=== PATIENT | female | born 1980 | race Caucasian/White ===

== ENCOUNTER 2021-10-15 08:06 | Emergency (ER) | payer BC, OTHER ==
[2021-10-15 08:21] VITALS: BP 122/74; PULSE 77; TEMP 98; BMI 32.9
== END 2021-10-15 08:38 | disposition home or self-care (01) ==
LOC: JER 08:06
DX: R09.82 Postnasal drip (principal); Z20.822 Contact with and (suspected) exposure to COVID-19
CPT/HCPCS: 99283-25; C9803; U0003; U0005

== ENCOUNTER 2021-10-25 08:33 | Emergency (ER) | payer BC, OTHER ==
[2021-10-25 08:36] VITALS: BP 141/93; PULSE 74; TEMP 97.9; BMI 31.3
[2021-10-26 11:07] LABS: SARS-CoV-2 NAA Not Detected (Not Detected)
== END 2021-10-25 09:07 | disposition home or self-care (01) ==
LOC: JER 08:33
DX: M79.10 Myalgia, unspecified site (principal); R05.1 Acute cough; R51.9 Headache, unspecified
CPT/HCPCS: 99283-25; C9803; U0003; U0005

== ENCOUNTER 2021-10-27 14:31 | Emergency (ER) | payer BC, OTHER ==
[2021-10-27] MEDS ORDERED: ACETAMINOPHEN 500 MG TABLET (FP) PO ONE (14:38)
[2021-10-27] MEDS ORDERED: KETOROLAC TROMETHAMINE 30 MG/1 ML VIAL IM ONE (14:38)
[2021-10-27] MEDS ORDERED: DEXAMETHASONE LIQUID 0.5 MG/5 ML PO ONE (14:38)
[2021-10-27] MEDS ORDERED: KETOROLAC TROMETHAMINE 30 MG/1 ML VIAL ONE ×2 (14:40→15:52)
[2021-10-27] MEDS ORDERED: DEXAMETHASONE SOD PHOSPHATE 10 MG/1 ML VIAL ONE ×2 (14:40→15:52)
[2021-10-27] MEDS ORDERED: ACETAMINOPHEN 500 MG TABLET (FP) ONE (14:40)
[2021-10-27 15:18] VITALS: BP 128/91; PULSE 86; TEMP 100.9; BMI 31.3
[2021-10-27] MEDS ORDERED: ACETAMINOPHEN 325 MG TABLET (FP) ONE (15:52)
== END 2021-10-27 15:59 | disposition home or self-care (01) ==
LOC: JER 14:31
PROC: 3E0233Z Introduction of Anti-inflammatory into Muscle, Percutaneous Approach (ICD-10-PCS; principal; 2021-10-27)
DX: R05.1 Acute cough (principal); R50.9 Fever, unspecified
CPT/HCPCS: 71046-TC-FY; 87804; 87807; 99284-25; C9803; U0003; U0005

== ENCOUNTER 2023-05-06 08:32 | Emergency (ER) | payer BC, OTHER ==
[2023-05-06 08:40] VITALS: BMI 29.3
[2023-05-06] MEDS ORDERED: ACETAMINOPHEN 1000 MG/100 ML BAG IVPB ONE (09:28)
[2023-05-06] MEDS ORDERED: ACETAMINOPHEN INJECTION 100 ML IVPB ONE (09:36)
[2023-05-06 10:24] LABS: BASO % 0.4 % (0-2.0); EOS % 2.2 % (0-4.5); HEMATOCRIT 36.6 % (32.4-45.2); HEMOGLOBIN 12.3 GM/dL (10.7-15.3); MCH 29.6 pg (25.7-33.7); MCHC 33.7 g/dl (32.0-36.0); MEAN CELL VOLUME 87.9 fl (80-96); MEAN PLT VOLUME 9.5 fl (7.5-11.1); MONO % 6.9 % (3.8-10.2); NEUT % 71.5 % (42.8-82.8); PLATELET COUNT 282 10^3/uL (134-434); RBC 4.17 M/mm3 (3.60-5.2); RDW 13.2 % (11.6-15.6); WHITE BLOOD COUNT 7.2 K/mm3 (4.0-10.0)
[2023-05-06 10:35] LABS: CHLORIDE 103 mmol/L (98-107); SODIUM 141 mmol/L (136-145)
[2023-05-06 10:37] LABS: CALCIUM 8.4 mg/dL (8.5-10.1)
[2023-05-06 10:38] LABS: ALBUMIN 2.7 g/dl (3.4-5.0); BLOOD UREA NITROGEN 4.7 mg/dL (7-18); CO2 31 mmol/L (21-32); GLUCOSE,RANDOM 118 mg/dL (74-106)
[2023-05-06 10:41] LABS: CREATININE 0.8 mg/dL (0.55-1.3); SGOT/AST 12 U/L (15-37); SGPT/ALT 20 U/L (13-61)
[2023-05-06 10:43] LABS: BILIRUBIN,TOTAL 0.5 mg/dL (0.2-1); TOT PROT 6.6 g/dl (6.4-8.2)
[2023-05-06 10:44] LABS: ALK PHOS 68 U/L (45-117)
[2023-05-06 10:52] LABS: ANION GAP 8 MMOL/L (8-16); POTASSIUM 2.6 mmol/L (3.5-5.1)
[2023-05-06] MEDS ORDERED: KCL 10 MEQ IVPB 10 MEQ/100 ML INFUS.BAG IVPB SCH (11:00)
[2023-05-06] MEDS ORDERED: KCL 10 MEQ IVPB 10 MEQ/100 ML INFUS.BAG IVPB ONE (11:15)
[2023-05-06] MEDS ORDERED: POTASSIUM CHLORIDE ORAL LIQUID 20 MEQ/15 ML PO ONE (11:22)
[2023-05-06] MEDS ORDERED: POTASSIUM CHLORIDE ORAL LIQUID 20 MEQ/15 ML ONE (11:28)
[2023-05-06 11:57] VITALS: BP 111/70; PULSE 71; RESP 20; TEMP 98.1
== END 2023-05-06 12:00 | disposition home or self-care (01) ==
LOC: JER 08:32
PROC: 3E033NZ Introduction of Analgesics, Hypnotics, Sedatives into Peripheral Vein, Percutaneous Approach (ICD-10-PCS; principal; 2023-05-06)
DX: R07.9 Chest pain, unspecified (principal); J18.9 Pneumonia, unspecified organism; E87.6 Hypokalemia
CPT/HCPCS: 0241U-QW; 36415; 71046-TC-FY; 80053; 84484; 84703; 85025; 93005; 93010; 99285-25